=== PATIENT | female | born 1945 | race Caucasian/White ===

== ENCOUNTER 2018-11-20 07:55 | Emergency (ER) | payer MEDICARE, BC, OTHER ==
[~2018-11-20] VITALS: Ht 167.6 cm; Wt 85.7 kg
[2018-11-20] MEDS ORDERED: ALBUTEROL/IPRATROPIUM 2.5MG/0.5MG, 3 ML NPPB SCH (08:30)
[2018-11-20] MEDS ORDERED: LEVO50TA5 PO (08:30)
[2018-11-20] MEDS ORDERED: TRAZ50TA66 PO (08:30)
--- NOTE | 2018-11-20 08:31 | NUR ---
First contact with pt. Pt c/o productive cough with bloody sputum since 11/08. Pt states she was recently on a cruise during that time to [place]. Pt speaking in full sentences, resp even and unlabored. Pt placed in gown, positioned for comfort in bed with warm blanket. Continuous heart, oxygen and BP monitors in place, all safety measures observed.
[2018-11-20] MEDS ORDERED: HYDROCHLOROTH12.5 MG PO (08:32)
[2018-11-20] MEDS ORDERED: DULO60CA7 PO (08:33)
[2018-11-20] MEDS ORDERED: OMEP40CA6 PO (08:34)
[2018-11-20] MEDS ORDERED: ATOR10TA9 PO (08:35)
[2018-11-20] MEDS ORDERED: ALBUTEROL/IPRATROPIUM 2.5MG/0.5MG, 3 ML ONE (08:47)
[2018-11-20 08:55] LABS: BASOPHILS # (AUTO) 0.03 x10^3/uL (0-0.1); BASOPHILS % (AUTO) 1 % (0-1); EOSINOPHILS # (AUTO) 0.46 x10^3/uL (0-0.4); EOSINOPHILS % (AUTO) 9 % (1-7); LYMPHOCYTES # (AUTO) 1.46 x10^3/uL (1-3.4); LYMPHOCYTES % (AUTO) 28 % (22-44); MD NO; MEAN CORPUSCULAR HEMOGLOBIN 30.6 pg (27.0-34.8); MEAN CORPUSCULAR VOLUME 92.7 fL (80-100); MEAN PLATELET VOLUME 8.6 fL (7.4-10.4); MONOCYTES % (AUTO) 8 % (2-9); NEUTROPHILS # (AUTO) 2.79 x10^3/uL (1.8-6.8); NEUTROPHILS % (AUTO) 54 % (42-75); PLATELET COUNT 275 x10^3/uL (130-400); RED BLOOD COUNT 5.12 x10^6/uL (3.82-5.3); RED CELL DISTRIBUTION WIDTH 14.7 % (9.6-15.2)
--- NOTE | 2018-11-20 08:56 | NUR ---
RT at bedside to administer breathing tx.
[2018-11-20 09:07] LABS: ALBUMIN 3.9 g/dL (3.4-5.0); ANION GAP 7 mmol/L (5-15); CALCIUM 9.1 mg/dL (8.5-10.1); CHLORIDE 105 mmol/L (98-107)
[2018-11-20 09:09] LABS: RAPID INFLUENZA A Negative (Negative); RAPID INFLUENZA B Negative (Negative)
[2018-11-20 09:12] LABS: ALANINE AMINOTRANSFERASE 21 U/L (12-78); ALKALINE PHOSPHATASE 83 U/L (45-117); BILIRUBIN,TOTAL 0.6 mg/dL (0.2-1.0); CREATININE 0.91 mg/dL (0.55-1.02); TOTAL PROTEIN 7.4 g/dL (6.4-8.2); TROPONIN I < 0.015 ng/mL (0.000-0.045)
--- NOTE | 2018-11-20 09:17 | NUR ---
Pt states she is feeling much better after breathing tx. Pt denies other needs.
--- NOTE | 2018-11-20 09:27 | NUR ---
Liv BOLANOS at bedside to discuss POC with pt.
--- NOTE | 2018-11-20 09:31 | NUR ---
Pt to CT via [facility].
--- NOTE | 2018-11-20 09:48 | NUR ---
Pt back from CT, resting in bed, [place].
--- NOTE | 2018-11-20 09:57 | NUR ---
Pt given water per request, denies other needs.
[2018-11-20] MEDS ORDERED: SODIUM CHLORIDE FLUSH 10ML SYR IVF ONE (10:00)
[2018-11-20] MEDS ORDERED: OMNIPAQUE 350 MG/ML, 100ML BOTTLE ONE (10:26)
[2018-11-20] MEDS ORDERED: ALBUTEROL SULFATE 2.5 MG/3 ML NPPB ONE (10:50)
[2018-11-20] MEDS ORDERED: ALBUTEROL SULFATE 2.5 MG/3 ML ONE (10:53)
[2018-11-20] MEDS ORDERED: ALBUTEROL/IPRATROPIUM 2.5MG/0.5MG, 3 ML NPPB ONE (11:00)
[2018-11-20 11:27] VITALS: BP 126/83
== END 2018-11-20 11:30 | disposition home or self-care (01) ==
LOC: ED 09:07
DX: J20.8 Acute bronchitis due to other specified organisms (principal); B97.89 Other viral agents as the cause of diseases classified elsewhere; I10 Essential (primary) hypertension; K21.9 Gastro-esophageal reflux disease without esophagitis; F41.9 Anxiety disorder, unspecified; Z88.1 Allergy status to other antibiotic agents; Z88.0 Allergy status to penicillin
CPT/HCPCS: 36415; 71045; 71275; 80053; 83605; 83880; 84145; 84484; 85025; 87040; 87400; 93005; 94640; 99284; J7512; J7620; Q9967